=== PATIENT | female | born 1975 | race Two or more races ===

== ENCOUNTER 2018-02-26 06:50 | Day surgery (SDC) | payer MEDICAID, SELFPAY ==
[2018-02-24 16:32] LABS: BASOPHILS % (AUTO) 0.3 % (0-1); EOSINOPHILS # (AUTO) 0.2 X10'3 (0-0.9); EOSINOPHILS % (AUTO) 2.9 % (0-6); LYMPHOCYTES % (AUTO) 43.6 % (21-51); MEAN CORPUSCULAR HEMOGLOBIN 32.2 PG (27.0-31.0); MEAN CORPUSCULAR HGB CONC 35.1 % (33.0-36.5); MEAN CORPUSCULAR VOLUME 91.8 FL (78-98); MEAN PLATELET VOLUME 10.8 FL (7.4-10.4); MONOCYTES # (AUTO) 0.3 X10'3 (0-0.9); MONOCYTES % (AUTO) 4.5 % (2-12); NEUTROPHILS # (AUTO) 3.3 X10'3 (1.8-7.7); NEUTROPHILS % (AUTO) 48.7 % (42-75); PRE OP HEMATOCRIT 37.6 % (35.0-45.0); PRE OP HEMOGLOBIN 13.2 g/dL (12.0-16.0); PRE OP PLATELET COUNT 188 X10'3 (140-440); RED CELL DISTRIBUTION WIDTH 14.5 % (11.5-14.5)
[2018-02-24 16:41] LABS: ALBUMIN 3.7 G/DL (3.4-5.0); ANION GAP 10 (8-16); BLOOD UREA NITROGEN 18 MG/DL (7-18); BUN/CREATININE RATIO 28.6 (6.6-38.0); CALCIUM 8.6 MG/DL (8.5-10.1); CHLORIDE 103 MMOL/L (99-107); CREATININE 0.63 MG/DL (0.40-0.90); GLUCOSE 88 MG/DL (70-104); POTASSIUM 3.6 MMOL/L (3.5-5.1); SODIUM 139 MMOL/L (135-145); TOTAL CARBON DIOXIDE 25.9 MMOL/L (24-32); eGFR > 90 ML/MIN
[2018-02-24 16:50] LABS: HCG SERUM QL NEGATIVE
[2018-02-24 17:22] LABS: LARGE PLATELETS FEW; PLATELET ESTIMATE NORMAL
[~2018-02-26] VITALS: Ht 160 cm; Wt 84.9 kg
[2018-02-26] VITALS (12 sets, daily range): BP systolic 107–123; BP diastolic 62–88
[~2018-02-26 06:50] MED LIST: ALBU18HF2 INH; PREN-124; famotidine 20mg tablet PO ONE; ringers solution, lacted 1,000 ML IV SCH
[2018-02-26] MEDS ORDERED: ringers solution, lacted 1,000 ML IV SCH (07:16)
[2018-02-26] MEDS ORDERED: morphine 4 MG/ML inj SYRINge IV PRN ×2 (07:20)
[2018-02-26] MEDS ORDERED: meperidine/PF 50mg/ml syringe IV PRN ×2 (07:20)
[2018-02-26] MEDS ORDERED: hydrALAZINE 20mg/ml inj. IV PRN (07:20)
[2018-02-26] MEDS ORDERED: ondansetron/PF 4mg/2ml inj IV PRN (07:20)
[2018-02-26] MEDS ORDERED: labetalol 5mg/ml 20ml inj. IV PRN (07:20)
[2018-02-26] MEDS ORDERED: fentaNYL/PF 50MCG/1 ML 2ML syringe ONE (08:33)
[2018-02-26] MEDS ORDERED: midazolam 2 mg/2 ml injection ONE (08:33)
[2018-02-26] MEDS ORDERED: ondansetron/PF 4mg/2ml inj ONE (08:34)
[2018-02-26] MEDS ORDERED: LIDOcaine 2% (20mg/ml) 5ml vial ONE (08:34)
[2018-02-26] MEDS ORDERED: dexamethasone sod phosphate 4mg/ml inj. ONE (08:35)
[2018-02-26] MEDS ORDERED: propofol inj 20 ML IV ONE (08:35)
[2018-02-26] MEDS ORDERED: meperidine/PF 25mg/ml syringe IV PRN ×2 (09:50)
== END 2018-02-26 10:50 | disposition home or self-care (01) ==
LOC: PAS 06:50
PROVIDERS: ATTEND Obstetrics & Gynecology
DX: Z30.2 Encounter for sterilization (principal); J45.998 Other asthma; E66.9 Obesity, unspecified; Z98.890 Other specified postprocedural states; Z79.899 Other long term (current) drug therapy; Z68.33 Body mass index [BMI] 33.0-33.9, adult
CPT/HCPCS: 36415; 58670; 80048; 84703; 85025; J1100; J2001; J2175; J2250; J2405; J2704; J3010; J7120; A7000